=== PATIENT | female | born 1940 | race Caucasian/White ===

== ENCOUNTER 2018-08-10 06:05 | Inpatient (IN) | payer MEDICARE, OTHER ==
[2018-07-30 09:03] LABS: ABSOLUTE BASOPHILS 0.1 thou/uL (0.0-0.2); ABSOLUTE EOSINOPHILS 0.1 thou/uL (0.0-0.7); ABSOLUTE LYMPHOCYTES 1.6 thou/uL (0.8-5.3); ABSOLUTE MONOCYTES 0.6 thou/uL (0.0-1.2); BASOPHILS 0.9 %; EOSINOPHILS 1.9 %; HEMATOCRIT 40.4 % (37.0-47.0); HEMOGLOBIN 13.3 gm/dL (12.0-15.0); MCH 30.2 pg (26.0-34.0); MCHC 32.9 g/dL (28.0-37.0); MONOCYTES 9.7 %; MPV 7.4 fl. (7.2-11.1); NUCLEATED RBCS 0 /100WBC; PLATELET COUNT* 337 thou/uL (150-400); POLYS 62.5 %; RBC 4.39 mil/uL (4.20-5.00); RDW-CV 13.2 % (10.5-14.5); WBC 6.5 thou/uL (4.0-11.0)
[2018-07-30 09:10] LABS: APTT 26.9 Seconds (25.0-31.3)
[2018-07-30 09:24] LABS: ALBUMIN 3.6 g/dL (3.4-5.0); CALCIUM 9.4 mg/dL (8.5-10.1); POTASSIUM 4.2 mmol/L (3.5-5.1); TOTAL BILIRUBIN 0.4 mg/dL (<0.1-1.0); TOTAL PROTEIN 7.8 g/dL (6.4-8.2)
[2018-07-30 10:19] LABS: ESR (SEDRATE) 22 mm/hr (0-30)
--- NOTE | 2018-07-30 16:29 | EKG ---
[place] [address] ELECTROCARDIOGRAM REPORT Name: SVEN MORENO Room: PRE IN [facility]#: [id number] Admission: Attend Phys: Andrey Gilmore Discharge: Date of : 36 Report #: [id number] THIS REPORT FOR: //name// [facility] Test Date: 2018-07-30 Test Time: 09:06:40 Pat Name: SVEN MORENO Department: Room: Gender: F Store [employer]: : 1940 Requested By: Guillaume Franklin Order Number: [id number] Reading MD: Igor Mcbride Measurements Intervals [place] Rate: 81 P: 66 WA: 139 QRS: 46 QRSD: 86 T: 69 QT: 370 QTc: 430 Interpretive Statements Sinus rhythm Compared to ECG 03/13/2017 09:20:56 No significant changes Electronically Signed On 07-30-2018 16:29:30 CDT by Igor Mcbride [email or web address] <ELECTRONICALLY SIGNED> By: Igor Mcbride MD, [facility] 07/30/18 1629 09 5 Igor Mcbride MD, FACC /EPI
[~2018-08-10] VITALS: Ht 167.6 cm; Wt 78.9 kg
[~2018-08-10 06:05] MED LIST: CALCIUM 500 +1 EAC5 PO; COLACE100 MG PO; CRANBERRY400 M1 PO; FIBER SELECT G1 EACH PO; FISH OIL 1,0001 EAC5 PO; HYDROCODON-ACE1 EAC5 PO; IBUPROFEN 200200 M1 PO; LISINOPRIL20 MG PO; LOMOTIL TABLET1 EACH PO; LOPERAMIDE 2 MG2 M1 PO; MAGNESIUM PO; MAGNESIUM100 MG PO; MAGNESIUM500 MG PO; MELATONIN10 M2 PO; MELATONIN3 MG PO; MULTIVITAMINS1 EAC7 PO; NORCO 10-325 T1 EACH PO; OXYCODONE HCL15 MG PO; PRINZIDE 20-121 EACH PO; PROBIOTIC1 EAC1 PO; TRAMADOL 50 MG50 MG PO; TYLENOL325 MG PO; VICODIN 5-5001 EACH PO; VITAMIN C1000 MG PO; VITAMIN E100 UNI2 PO; XARELTO10 MG PO; ZANTAC 150MG T150 MG PO
[2018-08-10 09:15] VITALS: BP 177/88
[2018-08-10 14:04] VITALS: BP 123/48
--- NOTE | 2018-08-10 14:43 | NUR ---
PATIENT CAME TO THE FLOOR FROM THE OR IN STABLE CONDITION VIA BED. PATIENT IS AROUSABLE BUT VERY DROWSY, VITAL SIGNS STABLE ON 3 LITERS OF OXYGEN WITH A CAPNO WELL. SOME PAIN THAT IS TOLERABLE PER PATIENT. ADMISSION ASSESSMENT AND ROOM ORIENTATION DONE, QUESTIONS ANSWERED FOR PATIENT AND FAMILY. CALL LIGHT IS IN REACH, BED ALARM ON AND FAMILY IS AT BEDSIDE, WILL CONTINUE TO MONITOR.
[2018-08-10 20:15] VITALS: BP 122/51
[2018-08-10 22:55] VITALS: BP 125/50
[2018-08-10 23:36] LABS: URINE BILIRUBIN NEGATIVE (Negative); URINE BLOOD NEGATIVE (Negative); URINE CLARITY CLEAR; URINE COLOR YELLOW; URINE GLUCOSE-RANDOM NEGATIVE (Negative); URINE KETONES NEGATIVE (Negative); URINE LEUKOCYTES-REFLEX NEGATIVE (Negative); URINE NITRITE-REFLEX NEGATIVE (Negative); URINE PROTEIN NEGATIVE (Negative); URINE UROBILINOGEN 0.2 E.U./dl (0.2-1.0)
[2018-08-11 04:05] VITALS: BP 128/54
[2018-08-11 04:27] LABS: HEMATOCRIT 31.9 % (37.0-47.0); HEMOGLOBIN 10.6 gm/dL (12.0-15.0)
--- NOTE | 2018-08-11 04:53 | NUR ---
PATIENT REMAINS ALERT AND ORIENTED X4 THROUGHOUT SHIFT. VITAL SIGNS STABLE ON ROOM AIR. IV PATENT IN THE LEFT FOREARM INFUSING PER ORDERS. PATIENT WAS UNABLE TO VOID, NURSING PLACED A GREEN AND SENT A UA PER ORDERS. GREEN PATENT AND SECURED DRAINING YELLOW URINE. TRANSFERS WITH ONE ASSIST WITH THE WALKER AND GAITBELT TO THE BEDSIDE COMMODE. ICE PACK APPLIED TO HIP. PAIN MANAGED WITH PO MEDICATION. DENIES NAUSEA. SURGICAL DRESSING CLEAN, DRY AND INTACT. RESTING COMFORTABLY THROUGHOUT THE NIGHT. BED ALARM IN PLACE. CALL LIGHT WITHIN REACH. NURSING WILL CONTINUE TO MONITOR.
[2018-08-11 09:30] VITALS: BP 124/75
--- NOTE | 2018-08-11 15:48 | NUR ---
PT.UP IN CHAIR. STATED SHE DOESN'T KNOW IF SHE CAN SIT UP UNTIL SUPPER. SHE LIVES WITH HER SPOUSE IN A HOUSE. HAS ONE STEP TO ENTER. 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 HER SON,ANTONIO, IS COMING TO STAY WITH HER AND AND HER WHEN SHE GOES HOME FROM THE [facility]. DAUGHTER LIVES CLOSE BY. SHE HAS NOT USED HOME HEALTH BEFORE. LAST HIP SURGERY SHE WENT TO [facility] BED. SHE SAID SHE REALLY HOPES SHE CAN GO HOME THIS TIME. PT.IS NORMALLY INDEPENDENT AND ACTIVE AT HOME. SHE HAD A GARDEN THIS SUMMER.
[2018-08-11 16:36] VITALS: BP 113/55
--- NOTE | 2018-08-11 18:15 | NUR ---
PATIENT HAS BEEN ALERT AND ORIENTED TODAY VERY PLEASANT. VITAL SIGNS HAVE BEEN STABLE ON ROOM AIR. PAIN THAT IS SOMEWHAT CONTROLLED WITH ORAL PAIN MEDICATIONS. TOLERATED THERAPY WELL TODAY. GREEN IS IN PLACE DRAINING LIGHT YELLOW URINE. CALL LIGHT IS IN REACH, WILL CONTINUE TO MONITOR.
[2018-08-11 21:00] VITALS: BP 136/77
[2018-08-12] VITALS: BP 129/46
[2018-08-12 04:00] VITALS: BP 137/58
[2018-08-12 04:19] LABS: HEMATOCRIT 32.2 % (37.0-47.0); HEMOGLOBIN 10.7 gm/dL (12.0-15.0)
--- NOTE | 2018-08-12 05:10 | NUR ---
ASSUMED PT CARE AT 1930. NURSING ASSESSMENT COMPLETED AT START OF SHIFT. C/O PAIN THIS SHIFT TO LEFT HIP AND BACK. PRN PAIN MEDICATION ADMINISTERED AND EFFECTIVE. HIP PRECAUTIONS IN PLACE. HOURLY ROUNDING COMPLETED, CALL LIGHT WITHIN REACH. NEGATIVE FOR SEPSIS SCREENING THIS SHIFT.
[2018-08-12 08:00] VITALS: BP 106/45
[2018-08-12 15:42] VITALS: BP 127/52
--- NOTE | 2018-08-12 17:08 | NUR ---
PAIN MANAGEMENT AND MEDS DISCUSSED WITH PT. PT PAIN NOW WELL MANAGED WITH ORDERED PAIN MED. PT C/O POOR APPETITE BUT IS DRINKING ENSURE WITH EVERY MEAL. PT PARTICIPATED WITH P.T. TODAY. NO OTHER C/O. FAMILY AT BEDSIDE. PT ABLE TO MAKE NEEDS KNOWN, CALL LIGHT IN REACH.
[2018-08-12 20:10] VITALS: BP 124/52
[2018-08-12 23:52] VITALS: BP 113/48
[2018-08-13 03:52] VITALS: BP 99/43
--- NOTE | 2018-08-13 05:13 | NUR ---
PATIENT REMAINS ALERT AND ORIENTD X4 THROUGHOUT SHIFT. VITAL SIGNS STABLE ON ROOM AIR. IV PATENT IN THE LEFT AC SALINE LOCKED PER ORDERS. TRANSFERS WITH ONE ASSIST WITH WALKER AND GAITBELT TO THE BEDSIDE COMMODE. PAIN MANAGED WITH PO MEDICATION. DENIES NAUSEA. REPOSITIONING SELF IN BED. HOURLY ROUNDING COMPLETE. CALL LIGHT WITHIN REACH. NURSING WILL CONTINUE TO MONITOR.
--- NOTE | 2018-08-13 07:11 | NUR ---
I have reviewed the documentation by JOSE R MOYA from to 08/12 and I concur with it. SHARON PAPPAS
[2018-08-13] MEDS ORDERED: FLOMAX0.4 MG PO (07:52)
[2018-08-13] MEDS ORDERED: SENNA-DOCUSATE1 EACH PO (07:52)
[2018-08-13 08:40] VITALS: BP 123/50
[2018-08-13 11:13] VITALS: BP 123/50
[2018-08-13] MEDS ORDERED: ASPIRIN325 PO (11:20)
[2018-08-13] MEDS ORDERED: ELIQUIS2.5 MG PO (11:21)
[2018-08-13 11:26] VITALS: BP 123/50
[2018-08-13] MEDS ORDERED: OXYCODONE HCL15 MG PO (11:29)
--- NOTE | 2018-08-13 12:00 | NUR ---
PT.DISCHARGING TODAY,HOME WITH HOME HEALTH. SHE CHOSE [facility] THEY GO TO HER AREA. SPOKE WITH TIM/PATITO. SHE SAID THEY COULD ACCEPT PT.[facility] SERV[facility] FOR PT/OT. FAXED H&P,OP REPORT,ORDERS,FACE SHEET,FACE TO FACE FORM TO TIM AT [facility] [phone]. CALLED IN PRESCRIPTION FOR ELIQUIS WRITTEN TO CHLOÉ [facility]OHLER. COPAY IS $19. PT.INFORMED.
--- NOTE | 2018-08-13 14:51 | NUR ---
PATIENT HAS BEEN ALERT AND ORIENTED TODAY VERY PLEASANT. VITAL SIGNS STABLE ON ROOM AIR TODAY. SOME COMPLAINTS OF PAIN THAT IS COMTROLLED WITH ORAL PAIN MEDICATIONS, ALTHOUGH MEDICATIONS DID MAKE PATIENT NAUSEATED WITH ONE EPISODE OF VOMITING. PATIENT TOLERATED THERAPY WELL TODAY. DISCHARGE INSTRUCTIONS AND PRESCRIPTIONS GIVEN, QUESTIONS ANSWERED FOR PATIENT AND FAMILY. LEFT VIA WHEELCHAIR TO HOME WITH HOME HEALTH.
[2018-08-13 14:58] VITALS: BP 123/50
--- NOTE | 2018-08-17 09:15 | OP ---
[address] [address] OPERATIVE REPORT Name: SVEN MORENO Room: [address]#: [id number] Admission: 08/10/18 Attend Phys: Andrey Gilmore Discharge: 08/13/18 Date of : 36 Report #: [id number] THIS REPORT FOR: //name// CC: Johnie Aguilera DICTATED BY: Soren Ansari DO DATE OF SERVICE: 08/10/2018 PREOPERATIVE DIAGNOSIS: Left hip degenerative joint disease. POSTOPERATIVE DIAGNOSIS: Left hip degenerative joint disease. PROCEDURES: Left total hip arthroplasty utilizing Biomet anterior total hip system with the following components: 1. A 56 mm G7 finned acetabular 4-hole shell. 2. A 40 mm G7 acetabular high wall liner. 3. An 11 mm high offset Taperloc micro femoral stem. 4. A 40 mm ceramic head with +3 mm neck adapter. 5. A 25 mm and 30 mm G7 acetabular screws. SURGEON: Guillaume Franklin DO ASSISTANTS: Soren Ansari DO and John Pan DO ANESTHESIA: General. ESTIMATED BLOOD LOSS: 250 mL ANTIBIOTICS: 1 g of Ancef IV preoperatively. DRAINS: None. SPECIMENS: None. COMPLICATIONS: None. DISPOSITION: Stable to PACU and will be admitted to the hospital for standard postoperative care. INDICATION FOR PROCEDURE: The patient is a pleasant 78-year-old female who was seen in orthopedic clinic with complaints of chronic left hip pain. She was found to have advanced degenerative joint disease noted on her left hip x-rays. Pain was refractory to conservative measures consisting of oral [facility] [address] [place] [address] OPERATIVE REPORT Name: SVEN MORENO Bernarda Room: [address] IN [facility].#: [id number] Admission: 08/10/18 Attend Phys: Andrey Gilmore Discharge: 08/13/18 Date of : 36 Report #: [id number] anti-inflammatories, activity modifications, home physical therapy exercises for much greater than 6 months' duration. Pain was greatly impacting her quality of life and preventing her from performing activities that she wishes to; therefore, we recommended proceeding with a left total hip arthroplasty through the anterior supine intermuscular approach. Risks, benefits, complications, indications and alternative treatments were discussed, and the patient wished to proceed with surgery today. DESCRIPTION OF PROCEDURE: The patient was seen in preoperative holding area correct operative site, left hip was initialed. The patient was taken back to the operating suite, placed in supine position on the [place] traction bed operative table. She was given benefit of general anesthetic while well-padded traction boots were applied to both feet and they were placed in the traction spars in normal fashion. A well-padded perineal post was placed in the groin region in the normal fashion. Arms were crossed above her chest and were well padded and secured throughout the case. Left hip was prepped and draped in typical fashion. Surgery began with a timeout, identifying correct patient, correct procedure, correct operative site, preoperative antibiotics and correct performing surgeon. Next, a standard direct anterior approach was performed to the left hip starting with a skin incision with a 10 blade scalpel. The skin was incised to roughly 8 cm in length with our starting point to roughly 2 cm distal, 2 cm lateral to the ASIS and extending roughly distally at 30-degree angle laterally. Again, skin and subcutaneous tissues were sharply incised down to the level of the tensor fascia. A new 10 blade scalpel was used to incise the tensor fascia. Tensor and sartorius interval was bluntly dissected. Ascending branch of the lateral circumflex femoral vessels was exposed and isolated and cauterized using the Aquamantys cautery. Deep fascia was then incised using electrocautery. Standard retractors were placed inferior and superior to the femoral neck. Using a Kim elevator and combination of electrocautery, rectus was elevated off the anterior aspect of the capsule. A #9 retractor was placed over the anterior column just superficial to the capsule. Anterior capsule was prepared in normal fashion utilizing the Aquamantys cautery. A standard anterior capsulectomy was performed utilizing electrocautery. Neck cut was performed utilizing an oscillating saw roughly 1 cm proximal to the lesser trochanter and proximally up to the saddle region. A napkin ring cut was also performed. Neck and head were removed utilizing the bone tenaculums. Sequential reaming was performed up to a size 55 mm reamer where we had great bleeding cancellous bone as well as we were down to the true floor of the acetabulum medially. A final 56 mm acetabular shell was impacted into place in the appropriate anteversion and coronal angle. Two acetabular screws were drilled and inserted in the normal fashion. Standard acetabular high wall liner was then impacted into place in the normal fashion. Standard posterior medial and lateral femoral releases were then performed at this time utilizing electrocautery to allow for appropriate exposure of the proximal femur, 5 and 8 retractors were placed on the [place] [address] OPERATIVE REPORT Name: SVEN MORENO Room: [address]#: [id number] Admission: 08/10/18 Attend Phys: Andrey Gilmore Discharge: 08/13/18 Date of : 36 Report #: [id number] then extended, externally rotated and then abducted in a normal fashion. Utilizing a box osteotome followed by a canal finder, the proximal femur was prepared for broaching. Then, sequential broaching was performed in the normal fashion with appropriate anteversion up to a size 11 mm stem. We felt this had great fit and fixation. This was utilized for a trial with a high offset setting and +3 mm neck. This was reduced, confirmed to be appropriate leg length and offset compared to the contralateral hip under fluoroscopy. Trial femoral stem, neck and head were removed at this time. Final femoral stem was impacted into place followed by the ceramic head and +3 mm neck adapter were also impacted into place. Final reduction of the hip was performed. Hip was taken through range of motion one last time, felt to be stable in all planes. Final C-arm fluoroscopy confirmed again appropriate leg lengths and appropriate stem size and component positioning. Hip was then thoroughly irrigated. Standard cocktail was injected in surrounding tissues. Tensor fascia was closed with #1 Stratafix suture. Subcutaneous tissues were closed in a simple inverted fashion with 2-0 Monocryl suture. Subcuticular running suture was performed with 3-0 Stratafix. Dermabond was applied to the skin glue. Mepilex silver dressing was applied to the skin. The patient was weaned from general anesthetic, transferred in stable condition to the PACU. All sponge, needle counts were correct x 2. <ELECTRONICALLY SIGNED> By: Guillaume Franklin DO 08/17/18 0915 1608 [id number] Trip Franklin DO /nt
== END 2018-08-13 14:50 | disposition home health service (06) | DRG 470 ==
LOC: M.PRE 06:05 → M.ORTHSURG 06:44 → M.TBA 06:44 → M.PRE 07:07 → M.ORTHSURG 13:47
PROVIDERS: Orthopaedic Surgery; ADMIT Internal Medicine
PROC: 0SRB0JZ Replacement of Left Hip Joint with Synthetic Substitute, Open Approach (ICD-10-PCS; principal; 2018-08-10)
DX: M16.12 Unilateral primary osteoarthritis, left hip (principal); I10 Essential (primary) hypertension; E55.9 Vitamin D deficiency, unspecified; K21.9 Gastro-esophageal reflux disease without esophagitis; G47.00 Insomnia, unspecified; M54.30 Sciatica, unspecified side; R33.9 Retention of urine, unspecified; Z88.1 Allergy status to other antibiotic agents; Z88.2 Allergy status to sulfonamides; Z88.8 Allergy status to other drugs, medicaments and biological substances; Z79.899 Other long term (current) drug therapy; Z87.440 Personal history of urinary (tract) infections; Z82.49 Family history of ischemic heart disease and other diseases of the circulatory system